=== PATIENT | female | born 1960 | race Caucasian/White ===

== ENCOUNTER → 2019-06-06 | Outpatient (CLI) | payer BC, SELFPAY ==
--- NOTE | 2019-06-06 | IMM_PTH ---
PATIENT: ADAM LOWRY LOC: [facility] U#:[id number] AGE/SX: 58/F ROOM: RE06/06/[address]: Dr. Vilma Ramírez MD : 1960 BED: DIS: 06/06/2019 SPEC #: [id number] RECD: 06/10/19 12:48 STATUS: GIGI REQ #: [id number] LEAH: 06/06/19 00:[address]: Vilma Villarreal DEPT: IMMUNOHISTOCHEMISTRY RECD BY: Nhi Cleaning ENTERED: 06/10/19 12:51 SP TYPE: IMMUNO OTHR DR: No Primary Care Phys Tissues: A - Uterine cervix, NOS Procedures: p16 (initial) KI-67 (add) PHYSICIAN & INSTITUTION [place] [id number] SPECIMEN INFORMATION: Tissue Source: A - Cervical biopsy at 3 o'clock Clinical Info: Menopausal, ASCUS, positive HPV Specimen Number: [id number] CPT code: 37743, 02350 METHODOLOGY: Deparaffinized sections of prefer/formalin-fixed tissue or PAP/DQ stained slides are incubated with monoclonal/polyclonal antibodies/oligonucleotide probes. Localization is made via biotin free immunoperoxidase method. Appropriate controls are performed and reacted as expected. Results on target cell population are indicated in the following table: RESULTS: ANTIBODY / CLONE RESULT Block A P16 (E6H4) positive, block staining Ki-67 (30-9) positive, moderate These tests were developed and their performance characteristics determined by [facility]. They may not have been cleared or approved by the U.S. Food and Drug Administration. The FDA has determined that such clearance or approval is not necessary. The above immunohistochemical/dualISH markers are ordered and reviewed by the Pathologist. INTERPRETATION: A. Cervix at 3 o'clock, biopsy: Focal moderate squamous dysplasia. YONG:markus 06/10/19
--- NOTE | 2019-06-06 15:00 | CER_PTH ---
PATIENT: ADAM LOWRY LOC: [facility] U#:[id number] AGE/SX: 58/F ROOM: RE06/06/[address]: Dr. Vilma Ramírez MD : 1960 BED: DIS: 06/06/2019 SPEC #: [id number] RECD: 06/06/19 15:58 STATUS: GIGI RERoman #: [id number] LEAH: 06/06/19 15:[address]: Vilma Villarreal DEPT: SURGICAL PATHOLOGY RECD BY: Darrel Moreno ENTERED: 06/07/19 11:58 SP TYPE: CERV OTHR DR: Nette Primary Care Phys Tissues: A - Uterine cervix, NOS B - Uterine cervix, NOS Procedures: Surgery Specimen Level IV HEADER OPERATION: Colposcopy PRE-OP DIAGNOSIS: Menopausal, ASCUS, positive HPV TISSUE SUBMITTED: A - Cervical biopsy at 3 o'clock, B - ECC MICROSCOPIC DIAGNOSIS A. Cervix, 3 o'clock, biopsy: Focal Moderate squamous dysplasia (HGSIL, KATRINA II). Chronic inflammation and squamous metaplasia. See comment. B. ECC: A fragment of benign endocervical mucosa predominantly consisting of stromal tissue and mucous, negative for dysplasia. YONG:markus 06/10/19 COMMENT A. Immunohistochemistry ([id number]) for surrogate HPV marker (p16) supports the above diagnosis. This case has been reviewed in consultation with Dr. Jones who concurs with the above diagnosis. MICROSCOPIC DESCRIPTION Slides are reviewed. GROSS DESCRIPTION A - Received in fixative is one container labeled with the patient's name and designated cervical. The specimen consists of multiple irregular fragments of light david soft tissue that in aggregate measure 0.2 x 0.1 x <0.1 cm. The specimen is totally submitted in one cassette. B - Received in fixative is one container labeled with the patient's name and designated ECC. The specimen consists of multiple minute fragments of david tissue that in aggregate measure 1 x 1 x <0.1 cm. The specimen is totally submitted in one cassette. / AM:markus 06/07/19 TC:5 CPT: 59131 x2
== END | disposition home or self-care (01) ==
LOC: LABSPEC 16:00
PROVIDERS: Referring Provider Obstetrics & Gynecology; Visit Provider Obstetrics & Gynecology
DX: R87.610 Atypical squamous cells of undetermined significance on cytologic smear of cervix (ASC-US) (principal); Z78.0 Asymptomatic menopausal state
CPT/HCPCS: 88305; 88341; 88342

== ENCOUNTER 2019-08-16 09:40 | Day surgery (SDC) | payer BC, SELFPAY ==
--- NOTE | 2019-08-15 15:38 | PCM.HPOB.BLA ---
- Problem List (1) Cervical dysplasia, moderate Status: Acute History and Physical Date of Admission: 08/16/19 Date: 08/15/2019 Name: LIDA GÓMEZ Age: 58 Date of : 1960 Surgical History and Physical Date: 08/15/2019 Name: LIDA GÓMEZ Age: 58 Date of : 1960 Lida Gómze, a 58 year old female 2 0 0 0 2, presents for LEEP on August 08, 2019 at 2:30. -- iLda was referred for ASCUS, positive HRHPV PAP. Cervical biopsy showed CIN2. MEDICATIONS HISTORY: Patient is also takin. alprazolam 0.25 mg tablet, prn 2. Cymbalta 60 mg capsule,delayed release, daily 3. gemfibrozil 600 mg tablet, daily 4. hydroxyzine pamoate 25 mg capsule, prn 5. meloxicam 15 mg tablet, prn 6. metoprolol tartrate 50 mg tablet, daily 7. Vitamin D3 2,000 unit tablet, daily 8. zolpidem 10 mg tablet, prn ALLERGIES: Sulfa, Wheezing, hives, Sulfa (Sulfonamide Antibiotics) and Wheezing Infections - Chicken pox Illnesses - HTN,Arthritis, Fibromyalgia, cardiac arrhythmia Hospitalizations - Childbirth and see surgery Review of Systems: GENERAL - Denies fever, or chills SKIN - Denies skin changes EYES - wears eye glasses EARS - Denies difficulty hearing NOSE - Denies nasal congestion or bleeding MOUTH - Denies sore throat or difficulty swallowing NECK - Denies pain or swelling RESPIRATORY - Denies shortness of breath or wheezing CARDIOVASCULAR - Denies palpitations or chest pain GASTROINTESTINAL - Denies nausea, vomiting, diarrhea, constipation GENITOURINARY - Denies dysuria, frequency of urination, incontinence of urine MUSCULOSKELETAL - Denies joint or muscle pain NEUROLOGICAL - Denies localized numbness or weakness PSYCHIATRIC - Denies depression or anxiety ENDOCRINE - Denies heat or cold intolerance, weight loss or gain HEMATO-IMMUNOLOGIC - Denies excesive bleeding with cuts SOCIAL HISTORY: Alcohol Use - RARELY Smoking - used to smoke but quit Diet - no special diet Lifestyle - Seat Belt Use - always 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 MENSTRUAL HISTORY: LMP Known?- Postmenopausal, LMP - 01/01/11 PAST PREGNANCIES: Total Pregnancies - 2; Full Term Pregnancies - 2; Premature - 0; Abortions, Induced - 0; Abortions, Spontaneous - 0; Ectopics - 0; Multiple Births - 0; Living Children - 2 SURGICAL HISTORY: 1. Ear tube, 2018 ; - 2. Cardiac ablation, 10/30 ; - 3. Hernia repair, 01/01 ; - PHYSICAL EXAM BP- 100/70 Sitting, Right arm, regular cuff Weight- 201.13964 lbs Height- 65 inch BMI:33.52 CONSTITUTIONAL - NAD, well nourished, and well developed SKIN - No rash, lesions, or ulcers HEENT - normocephalic, atraumatic, sclerae anicteric LUNGS - normal respiratory rate and rhythm NEUROLOGICAL - normal gait, normal balance, normal motor PSYCHIATRIC - A and O to time, place, person, mood and affect External Genitial Vagina - non-tender without lesions Urethra/Urethral Meatus - non-tender Bladder - cystocele Vagina - vaginal rothman are pink and moist without loss of rugae and no evidence of atropy Cervix - without cervical motion tenderness and has normal size and features without evident lesions Uterus - 5-6 cm in size, mobile and nontender Adnexa - clear without massess or tenderness ASSESSMENT/PLAN: 1. Cervical High Risk Human Papillomavirus (hpv) DNA Test Positive Reviewed HPV transmission, risk for cervical ca Colposcopy - CIN2 Plan for LEEP Consents on day of surgery. Essential Procedure Criteria Procedure Essential: Yes Criteria Note: precancerous lesion present - excision required to prevent progression to cancer and rule out occult malignant Risk to Patient if Procedure Delayed: Risk of metastasis or progression of staging
[2019-08-16] VITALS (7 sets, daily range): BP systolic 130–163; BP diastolic 78–87; PULSE 60–66; RESP 15–16; TEMP 36.3–37.1; O2SAT 96–100; BMI 33.3
--- NOTE | 2019-08-16 | IMM_PTH ---
PATIENT: ADAM LOWRY LOC: [facility] U#:[id number] AGE/SX: 58/F ROOM: RE08/16/[address]: Dr. Vilma Ramírez MD : 1960 BED: DIS: 08/16/2019 SPEC #: [id number] RECD: 08/20/19 11:14 STATUS: GIGI REQ #: [id number] ELAH: 08/16/19 00:[address]: Vilma Villarreal DEPT: IMMUNOHISTOCHEMISTRY RECD BY: Nhi Cleaning ENTERED: 08/20/19 11:15 SP TYPE: IMMUNO OT DR: Indy Rutledge, INSPECTOR CHIEF-C Tissues: B - Uterine cervix, NOS Procedures: KI-67 (add) P16 (add) KI-67 (initial) PHYSICIAN & INSTITUTION [place] [id number] SPECIMEN INFORMATION: Tissue Source: B - Ectocervix open at 3 o'clock Clinical Info: Cervical high risk HPV DNA test positive Specimen Number: [id number] B2 & B3 CPT code: 81421, 43358 x3 METHODOLOGY: Deparaffinized sections of prefer/formalin-fixed tissue or PAP/DQ stained slides are incubated with monoclonal/polyclonal antibodies/oligonucleotide probes. Localization is made via biotin free immunoperoxidase method. Appropriate controls are performed and reacted as expected. Results on target cell population are indicated in the following table: RESULTS: ANTIBODY / CLONE RESULT Block B2 P16 (E6H4) positive, block staining Ki-67 (30-9) positive, moderate Block B3 P16 (E6H4) positive, block staining Ki-67 (30-9) positive, moderate These tests were developed and their performance characteristics determined by [facility]. They may not have been cleared or approved by the U.S. Food and Drug Administration. The FDA has determined that such clearance or approval is not necessary. The above immunohistochemical/dualISH markers are ordered and reviewed by the Pathologist. INTERPRETATION: Ectocervix, LEEP conization: Focal moderate to severe squamous dysplasia. SJ:markus 08/21/19
[2019-08-16 10:20] LABS: Hematocrit 42.7 % (37-47); Hemoglobin 13.3 g/dL (12.0-15.0); Mean Corp Hgb Conc 31.1 g/dL (32-36); Mean Corpuscular Hgb 25.8 pg (27.0-32.0); Mean Corpuscular Volume 82.9 fL (81-99); Platelet Count 375 K/mm3 (150-450); RBC Distribution Width CV 13.6 % (11.6-14.6); RBC Distribution Width SD 41.1 fl (35.1-43.9); Red Blood Count 5.15 M/mm3 (4.2-5.4); White Blood Count 7.8 K/mm3 (4.4-11.0)
[2019-08-16 10:29] LABS: Prothrombin Time (Protime)PT. 12.9 SECONDS (11.7-14.9)
[2019-08-16 10:30] LABS: Partial Thromboplast Time 26.4 Seconds (24.1-36.2)
[2019-08-16] MEDS: Lactated Ringers 1,000 ML 125 ML IV (10:33)
--- NOTE | 2019-08-16 11:30 | ECC_PTH ---
PATIENT: ADAM LOWRY [place] [facility] [place][id number] AGE/SX: 58/F ROOM: RE08/16/[address]: Dr. Vilma Ramírez MD : 1960 BED: DIS: 08/16/2019 SPEC #: [id number] RECD: 08/16/19 14:16 STATUS: GIGI MARY #: [id number] LEAH: 08/16/19 11:[address]: Vilma Villarreal DEPT: SURGICAL PATHOLOGY RECD BY: Amador Olivas ENTERED: 08/19/19 11:25 SP TYPE: ECC CATHY DR: Indy Rutledge, JOHN-C Tissues: A - Endocervical B - Uterine cervix, NOS Procedures: Surgery Specimen Level IV Surgery Specimen Level V HEADER OPERATION: LEEP cone PRE-OP DIAGNOSIS: Cervical high risk HPV DNA test positive TISSUE SUBMITTED: A - ECC, B - Ectocervix open at 3 o'clock MICROSCOPIC DIAGNOSIS A. ECC: Fragments of benign endocervical epithelium, blood and mucous, negative for dysplasia. B. Ectocervix, LEEP conization: Focal moderate to severe squamous dysplasia with HPV changes (HGSIL and KATRINA II-III). Dysplastic changes also involve endocervical glands. Chronic inflammation and squamous metaplasia. Focal moderate squamous dysplastic changes are noted at the ectocervical resection margin. See comment. SJ:markus 08/20/19 COMMENT B. Immunohistochemistry ([id number]) for surrogate HPV marker (p16) supports the above diagnosis. Please make reference to previous specimen ([id number]) cervix, 3 o'clock, biopsy with diagnosis of focal moderate squamous dysplasia. Case has been reviewed in consultation with Dr. Jones who concurs with the above diagnosis. IDC:AM MICROSCOPIC DESCRIPTION Slides are reviewed. GROSS DESCRIPTION A - Received in fixative is one container labeled with the patient's name and designated ECC. The specimen consists of multiple irregular fragments of david-brownish mucoid tissue that in aggregate measure 2 x 0.5 x 0.2 cm. The entire specimen is submitted in one cassette. B - Received in fixative is one container labeled with the patient's name and designated ectocervix open at 3 o'clock. The specimen consists of a david, indurated piece of tissue consisting of LEEP conization measuring 2.5 x 2.5 cm and up to 1 cm in length. No mucosal lesion is identified. The specimen is identified open at 3 o'clock. Nonmucosal margin is inked black. Endocervical margin is inked blue. The specimen is radially sectioned and submitted entirely in four cassettes as follows: 1 - 12 to 3 o'clock, 2??3 to 6 o'clock, 3 - 6 to 9 o'clock, 4 - 9 to 12 o'clock. / SJ:markus 08/19/19 TC:5 CPT: 38779, 25932
--- NOTE | 2019-08-16 12:25 | PCM.PN.BLA ---
Progress Note Reviewed with patient procedural indications. Risks including but not limited pain, bleeding, possibly requiring hysterectomy, infection, allergic reaction, scarring discussed. Patient and given opportunity to ask questions and questions answered to their satisfaction. Reviewed risk for Sars COV2 exposure associated with exceptions to social distancing including procedure. We reviewed risk for undiagnosed advanced lesion or progression of lesion to cancer associated with continued delay of procedure. Patient reports she is aware and desires to proceed. STROKE Vital Signs/Narrative: Vital Signs Temp Pulse Resp BP Pulse Ox 08/16/19 10:22 98.7 F 64 15 163/78 H 99 Essential Procedure Criteria Procedure Essential: Yes Criteria Note: Cervical precancer in situ - excisional procedure indicated to prevent progression to cervical cancer and rule out coexisting lesion Risk to Patient if Procedure Delayed: Risk of metastasis or progression of staging
--- NOTE | 2019-08-16 13:07 | PCM.OPRPT ---
Problem List (1) Cervical dysplasia, moderate Status: Acute Report of Operation Date of Procedure: 08/16/19 Pre-Operative Diagnosis: High grade cervical dysplasia Surgery/Procedure Performed:: High grade cervical dysplasia Type of Anesthesia:: MAC Anesthesiologist: Ozzie Gonzales Specimen's removed: 1. ectocervix - open at 3 o'clock, 2. endocervical curettings Estimated Blood Loss (mL): 15 ml Fluids Replaced: 800 ml Description of Procedure: Patient was brought to the operating room and sign in performed. She was induced under MAC. She was repositioned into dorsal lithotomy. The perineum was prepped and draped in sterile fashion. An insulated speculum was placed into the vagina and cervix visualized. Lugol's solution applied to the cervix with circumferential non-uptake at the transformation zone. 20cc of dilute Vasopression (20cc in 200cc NS) was injected paracervically. A 2cm x 1 cm loop electrode was used to excise the ectocervix. Endocervical curettage was performed. The LEEP excisional bed was fulgarated and electrocoagulated using the ball electrode with good hemostasis. Monsel's solution was applied at the surgical site for additional hemostasis. The procedure was complete. The patient was repositioned into dorsal supine, awakened and transferred to the recovery room without complication. Sponge counts were correct x 2. Patient tolerated the procedure well. - Admit VTE Documentation VTE Present on Admission: No VTE Mechan Device Prophylaxis: SCD's VTE Pharm Prophylaxis ordered?: No
--- NOTE | 2019-08-16 13:17 | DCINST_ITS ---
Discharge Diet: No Restrictions Discharge Activity: Return to Normal Activity, May not drive while taking narcotic pain medications., May Shower, - - No tub bath for 2 weeks, nothing in the vagina, no driving for 24-48 hours May resume sexual activity in: 4 weeks Call your doctor if you observe: Fever of 101 or Higher, Inability to urinate, Using more than one pad per hour, Shortness of breath, Chest pain, Calf discomfort, Uncontrolled pain Allergies/Adverse Reactions: Allergies Sulfa (Sulfonamide Antibiotics) Allergy (Verified 08/16/19 10:20) Swelling Medications to take at Discharge Amitriptyline HCl [Elavil] 25 mg PO QHS PRN 08/14/19 Amlodipine Besylate [Norvasc] 5 mg PO QHS 08/14/19 Buspirone HCl 10 mg PO TID PRN 08/14/19 Clostrium 1 cap PO DAILY 08/14/19 Duloxetine Hcl [Cymbalta] 60 mg PO DAILY 08/14/19 Ergocalciferol [Vitamin D] 50,000 unit PO Q7D 08/14/19 Gemfibrozil [Lopid] 600 mg PO QHS 08/14/19 Iron,Carbonyl [Carbonyl Iron] 65 mg PO DAILY 08/14/19 Metoprolol Tartrate [Lopressor (beta sidra)] 50 mg PO QHS 08/14/19 Ibuprofen 600 mg PO TID PRN #30 tab 08/16/19 Oxycodone [Oxyir] 5 mg PO Q6H PRN PRN 7 Days #4 tab 08/16/19 The following prescriptions were given: Ibuprofen 600 mg PO TID PRN #30 tab PRN Reason: pain Transmission Status: Pending to [facility] Oxycodone [Oxyir] 5 mg PO Q6H PRN PRN 7 Days #4 tab PRN Reason: severe pain Prescription Printed Primary Care Physician: Indy Rutledge NP-C [Primary Care Provider] - Test Results: Test results from this visit will be discussed in further detail at your follow- up appointment, if applicable. Please Follow Up With: Vilma Power MD When: 2-4 weeks
== END 2019-08-16 14:03 | disposition home or self-care (01) ==
LOC: SDC 09:45 → AC 09:47
PROVIDERS: PCP Nurse Practitioner Family; Referring Provider Obstetrics & Gynecology; Visit Provider Obstetrics & Gynecology
PROC: 0UBC7ZZ Excision of Cervix, Via Natural or Artificial Opening (ICD-10-PCS; CPT 57522; principal; 2019-08-16 11:15)
DX: R87.613 High grade squamous intraepithelial lesion on cytologic smear of cervix (HGSIL) (principal); D64.9 Anemia, unspecified; I10 Essential (primary) hypertension; E78.00 Pure hypercholesterolemia, unspecified; M79.7 Fibromyalgia; F41.9 Anxiety disorder, unspecified; Z79.1 Long term (current) use of non-steroidal anti-inflammatories (NSAID); Z79.899 Other long term (current) drug therapy; Z88.2 Allergy status to sulfonamides; Z87.891 Personal history of nicotine dependence
CPT/HCPCS: 57522; 36415; 85027; 85610; 85730; 86850; 86900; 86901; 88305; 88307; 88341; 88342; J7120

== ENCOUNTER → 2020-01-28 | Outpatient (CLI) | payer BC, SELFPAY ==
[2019-09-30 09:21] VITALS: BMI 33.3
[2020-02-01 14:11] LABS: HPV APTIMA, High Risk Negative (Negative)
== END | disposition home or self-care (01) ==
LOC: LABSPEC 15:03
PROVIDERS: PCP Nurse Practitioner Family; Visit Provider Obstetrics & Gynecology
DX: N87.1 Moderate cervical dysplasia (principal)
CPT/HCPCS: 87624; 88175; G0145

== ENCOUNTER → 2020-02-28 09:55 | Outpatient (CLI) | payer BC, SELFPAY ==
[2019-09-30 09:21] VITALS: BMI 33.3
--- NOTE | 2020-02-28 09:40 | ECC_PTH ---
PATIENT: ADAM LOWRY LOC: [facility] U#:[id number] AGE/SX: 64/F ROOM: RE02/28/[address]: Dr. Vilma Ramírez MD : 1960 BED: DIS: SPEC #: [id number] RECD: 02/28/20 11:09 STATUS: GIGI MARY #: [id number] LEAH: 02/28/20 09:[address]: Vilma Villarreal DEPT: SURGICAL PATHOLOGY RECD BY: Amador Olivas ENTERED: 02/28/20 11:09 SP TYPE: ECC CAROLYNHR DR: Indy Rutledge, DITCHING MACHINE OPERATING ENGINEER-C Tissues: Endocervical Procedures: Surgery Specimen Level IV HEADER OPERATION: ECC PRE-OP DIAGNOSIS: ASCUS, positive HR-HPV TISSUE SUBMITTED: Endocervix MICROSCOPIC DIAGNOSIS ECC: Fragments of benign ectocervical epithelium and amorphous calcified material, negative for dysplasia. See comment. YONG:markus 03/02/20 COMMENT Clinical correlation and appropriate follow up are necessary. Please make reference to previous specimens ([id number]) cervix, 3 o'clock with diagnosis of focal moderate squamous dysplasia and ([id number]) ectocervix, LEEP conization with diagnosis of focal moderate to severe squamous dysplasia and also focal moderate squamous dysplastic changes noted at the ectocervical resection margin. MICROSCOPIC DESCRIPTION Slides are reviewed. GROSS DESCRIPTION Received in fixative is one container labeled with the patient's name and designated ECC. The specimen consists of a scant amount of soft tissue. The specimen is totally submitted for cell block preparation. / SJ:markus 02/28/20 TC:5 CPT: 78038
== END ==
PROVIDERS: PCP Nurse Practitioner Family; Visit Provider Obstetrics & Gynecology
DX: N88.2 Stricture and stenosis of cervix uteri (principal); N87.1 Moderate cervical dysplasia
CPT/HCPCS: 88305

== ENCOUNTER 2021-05-14 16:31 | Outpatient (CLI) | payer BC, SELFPAY ==
[2021-05-19 17:03] LABS: HPV APTIMA, High Risk Negative (Negative)
== END 2021-05-14 23:59 | disposition short-term general hospital (02) ==
LOC: LABSPEC 16:32
PROVIDERS: Visit Provider Obstetrics & Gynecology
DX: Z12.4 Encounter for screening for malignant neoplasm of cervix (principal)
CPT/HCPCS: 87624; 88175; G0145

== ENCOUNTER → 2022-04-04 | Outpatient (CLI) | payer OTHER, SELFPAY ==
--- NOTE | 2022-04-04 | BRBX_PTH ---
PATIENT: ADAM LOWRY LOC: [facility] U#:[id number] AGE/SX: 61/F ROOM: RE04/04/[address]: Dr. Thiago Blankenship MD : 1960 BED: DIS: 04/04/2022 SPEC #: [id number] RECD: 04/04/22 12:00 STATUS: GIGI MARY #: [id number] LEAH: 04/04/22 00:[address]: Thiago Blankenship DEPT: SURGICAL PATHOLOGY RECD BY: Mason Lacy ENTERED: 04/04/22 12:01 SP TYPE: BREAST BX OTHR DR: Indy Polanco, TECH INTERN-C Tissues: Left breast, NOS Procedures: Surgery Specimen Level IV HEADER OPERATION: Left breast stereotactic needle core biopsy PRE-OP DIAGNOSIS: Spiculated density UOQ TISSUE SUBMITTED: Left breast ISCHEMIC TIME: 1 minute FIXATION TIME: 8 hours MICROSCOPIC DIAGNOSIS Left breast, density upper outer quadrant, stereotactic needle core biopsy: Extensive intraductal hyperplasia with focal areas of florid intraductal hyperplasia without atypia. Fibrocystic changes and extensive adenosis. Negative for malignancy. See comment. YONG:markus 04/05/2022 COMMENT Correlation with clinical, radiologic findings and appropriate follow up are necessary. Case has been reviewed in consultation with Dr. Jones who concurs with the above diagnosis. IDC:AM MICROSCOPIC DESCRIPTION Slides are reviewed. GROSS DESCRIPTION Received in fixative is one container labeled with the patient's name and designated left breast. The specimen consists of multiple elongated fragments of david-yellow fibroadipose tissue that in aggregate measure 5 x 3 x 0.6 cm. The entire specimen is submitted in four cassettes. / YONG:[email or web address] 04/04/2022 TC:5 CPT: 19804
--- NOTE | 2022-04-04 11:06 | PCM.HP.BLA ---
History and Physical Date of Admission: 04/04/22 Visit Reasons:?LEFT BIRADS 4 Allergies Sulfa (Sulfonamide Antibiotics) Allergy (Verified 04/01/22 12:27) Swelling PFSH Medical History?(Updated 04/01/22 @ 12:24 by Irene Bynum) Anxiety Hiatal hernia HTN (hypertension) Surgical History?(Updated 04/01/22 @ 12:25 by Irene Bynum) H/O cardiac radiofrequency ablation History of repair of hiatal hernia Family History?(Updated 04/01/22 @ 12:25 by Irene Bynum) Father Colon cancerMother Hypertension Hyperlipidemia Social History?(Updated 04/01/22 @ 12:26 by Irene Bynum) Smoking Status:? Former smoker alcohol intake:? never substance use type:? does not use HPI HPI HPI: 61-year-old female is being referred by Dr. Indy Polanco for surgical consultation regarding an abnormal mammogram and a written copy of my surgical consult and recommendations will return to her.? At [facility] the patient had routine screening mammography on March 14, 2022.? There was felt to be asymmetry in the left breast central mid breast only seen on the oblique view 1 o'clock position and was felt to measure 14 x 19 x 18 mm.? Diagnostic left breast mammogram was obtained suggesting a 11 x 12 x 13 mm stellate lesion at 1 o'clock position left breast.? A left breast ultrasound was obtained suggesting likely benign cyst versus solid lesion hypoechoic left breast 1 o'clock position 3 x 3 x 3 mm and another similar lesion 3 x 3 x 4 mm and several smaller lesions at the 3 o'clock position.? It was felt that these findings did not correlate with the mammographic findings. T 11-year-old female.? G2, .? Menarche at age 18.? First child born when she was 21.? She did not breast-feed.? No history of previous breast biopsies.? She has not been on estrogen medication.? Family history notable for maternal grandmother had breast cancer. Medical issues include hypertension and hypercholesterolemia and panic attacks. She denies any breast pain.? No nipple discharge or bleeding. ROS General General: No weight change, appetite, fatigue, colon cancer, breast cancer or weakness HEENT HEENT: No difficulty swallowing, eye injury, eye surgery, swollen glands or hoarseness Endo Endocrine: No thyroid disease, diabetes mellitus, thyroid cancer, Hair loss, heat intolerance or cold intolerance Skin Skin: No rash or changing moles Breast Breast: Yes abnormal mammogram; No left breast lump, right breast lump, nipple discharge, breast pain, abnormal US or breast enlargement Musc Musculoskeletal: Yes arthritis; No back problems, rheumatoid arthritis, gout or joint pain Cardio Cardiovascular: Yes high blood pressure; No murmur, pacemaker, heart disease, atrial fibrillation, heart attack, heart stent, palpitations, shortness of breat with exertion or chest pain Psych Psychiatric: Yes anxiety; No depression or hearing voices Resp Respiratory: No shortness of breath, No sleep apnea, No cough, No COPD, No asthma, No emphysema and No wheezing Gastro Gastrointestinal: No abdominal pain, No nausea or vomiting, No diarrhea, No constipation, No blood in stool, No acid reflux, No hemorrhoids, No ulcers, No gallbladder problem and No black,tarry stools Kristofer Hematologic: No blood thinners, No blood disorders, No bleeding, No anemia and No blood clots Neuro Neurologic: No system reviewed and no additional complaints, except as documented, No as per HPI, No abnormal gait, No abnormal hearing, No abnormal movements, No abnormal speech, No behavioral changes, No burning sensations, No confusion, No convulsions, No disequilibrium, No dizziness, No localized weakness, No frequent falls, No headache(s), No lack of coordination, No loss of vision, No memory loss, No numbness, No other visual disturbances, No radicular pain, No restless legs, No sensory deficit, No syncope, No tingling, No tremor(s), No weakness and No other Exam Const General: cooperative, comfortable and no acute distress Nutritional Appearance: obese [facility] Head: normal to inspection Eyes General: appearance normal, both eyes and all related structures Neck Neck: normal visual inspection Chest Other: Right breast: No focal mass, no nipple discharge, no axillary clavicular neuropathy, fibrofatty axilla, no focal mass Left wrist: Mild diffuse fibrous change upper outer quadrant left breast.? No focal mass.? No axillary clavicular adenopathy.? No nipple discharge or bleeding Resp Effort & Inspection: normal respiratory effort Auscultation: clear to auscultation bilaterally Cardio Rate: regular rate Rhythm: regular rhythm GI Inspection: normal to inspection Palpation: soft and no hepatosplenomegaly Musc Cervical Spine: normal cervical lordosis Skin General: no rashes or lesions noted Neuro General: patient alert, patient awake and patient oriented x3 Extrem General: no calf tenderness Psych Appearance: grossly normal Assessment and Plan Assessment and Plan (1) Abnormal mammogram of left breast: ?Status:?Acute ?Plan: I recommended the patient attempt at a stereotactic needle core upper outer quadrant left breast biopsy.? The area in question is indeed quite vague.? I discussed the technique, benefit, risk, alternatives.? She has had an opportunity to ask and have questions answered.? We will schedule Care.? I very much appreciate the kind opportunity of assisting with her surgical management.? At this point I am hoping anticipating that the less invasive stereotactic biopsy will be diagnostic in deference to to the radiologist referred wire localization lumpectomy.? If the patient requires more definitive surgery I would like to hold the wire localized procedure till the setting that we would be doing a sentinel node biopsy. Copy: Dr. Indy Blankenship M.D., F.A.C.S. (2) Anxiety: ?Status:?Acute (3) HTN (hypertension): ?Status:?Chronic (4) Cervical dysplasia, moderate: ?Status:?Acute ? ? ? Orders: Orders Stereo Breast Biopsy [facility]st [facility] 04/04/22 R92.8 - Other abnormal and inconclusive findings on diagnostic imaging of breast I have examined the patient and the H&P has been reviewed. There are no clinical changes since date of exam. Thiago Blankenship M.D., F.A.C.S.
--- NOTE | 2022-04-04 11:44 | PCM.OPRPT ---
Report of Operation Date of Procedure: 04/04/22 Pre-Operative Diagnosis: Abnormal left mammogram with extraordinarily vague area of suspected spiculation upper outer quadrant Post-Operative Diagnosis: Same Surgery/Procedure Performed:: Stereotactic needle core biopsy upper outer left breast Description of Surgical Findings:: Timeout informed consent was obtained. 61-year-old female was taken to the stereotactic unit placed prone on the table the left wrist was placed in the cc view the generalized area in question which had been vaguely identified on preoperative films was identified. Dramatic spiculation was not identified. The general territory was. Stereotactic images were obtained. Target on scalp selected replacing image 1. The breast was prepped with Betadine. 1% lidocaine mixed 50-50 with 0.5% Marcaine was used as a local anesthetic. Throughout the procedure a total of 10 cc was used. Small stab incision was created. The resolved needle was advanced to depth. Prefire films were obtained demonstrating apparently good localization. 12 cores were taken completely around the clock face. Marking clip was left in position. She was released from the device pressure was held for hemostasis. The specimens were immediately transferred to formalin for analysis. She tolerated procedure very well there was minimal blood loss no apparent complication. Specimen scores. Drains none. Blood loss minimal The patient was given activity wound care instructions. She will be contacted with pathology results at the soonest convenience. Thiago Blankenship M.D., F.A.C.S. Surgeon: Thiago Blankenship Type of Anesthesia: Local
== END | disposition home or self-care (01) ==
LOC: BIRAD 10:59
PROVIDERS: PCP Nurse Practitioner Family; Visit Provider Surgery
DX: N60.22 Fibroadenosis of left breast (principal); I10 Essential (primary) hypertension; E78.00 Pure hypercholesterolemia, unspecified; F41.9 Anxiety disorder, unspecified; Z79.1 Long term (current) use of non-steroidal anti-inflammatories (NSAID); Z79.899 Other long term (current) drug therapy; Z87.891 Personal history of nicotine dependence
CPT/HCPCS: 19081; 88305; J7050

== ENCOUNTER → 2022-07-07 | Outpatient (CLI) | payer BC, SELFPAY ==
--- NOTE | 2022-07-07 09:10 | RAD_ITS ---
EXAM: FL Esophagram, Single Contrast HISTORY: DYSPHAGIA COMPARISON: None FINDINGS: This was an incomplete study, patient was unable to tolerate either the crystals, or ingest a significant enough quantity of barium to make this study diagnostic. Rather evaluation with modified barium swallow or endoscopy RAD/Esophagus Single Contrast IMPRESSION: Incomplete limited study, no suspicious abnormalities noted, however, study is nondiagnostic Electronically Signed: Jeremiah Ash MD at 10:30 EDT ,
== END | disposition home or self-care (01) ==
PROVIDERS: PCP Nurse Practitioner Family; Visit Provider Internal Medicine Gastroenterology
DX: R13.10 Dysphagia, unspecified (principal)
CPT/HCPCS: 74220; 74221

== ENCOUNTER → 2022-07-14 | Outpatient (CLI) | payer BC, SELFPAY ==
--- NOTE | 2022-07-14 09:25 | ECHOCS_ITS ---
Reason For Study: Chest Pain Procedure This was a 2D Doppler, Color Flow transthoracic echocardiogram. The study was technically difficult. Contrast injection was performed. Exam performed in department. Left Ventricle Normal size and thickness. The left ventricular ejection fraction is 60 %. Normal diastology for age. Right Ventricle Normal right ventricle. Atria The left and right atria are normal. Mitral Valve Trivial mitral valve insufficiency. Tricuspid Valve Trivial tricuspid valve insufficiency. Unable to estimate RV systolic pressure due to insufficient tricuspid regurgitant envelope. Aortic Valve Normal aortic valve. Pulmonic Valve The pulmonic valve is not well visualized. Great Vessels Normal sized aortic root. Pericardium/Pleural Prominent fat pad vs small organized effusion. Recommend CT chest for further evalaution,. Medication 22 gauge I.V. with prn adaptor inserted into right arm. Diluted definity 2ml given slow IV push to enhance endocardial definition. MMode/2D Measurements & Calculations LVIDd: 4.3 cm IVSd: 1.1 cm Ao root diam: 3.0 cm LVIDs: 3.0 cm LVPWd: 1.1 cm LA dimension: 3.6 cm RVDd: 2.4 cm FS: 29.7 % LAV(MOD-bp): 42.4 ml LA A4 area: 16.8 cm2 RA A4 area: 9.9 cm2 LAV(MOD-bp) Indexed: 21.4 ml/m2 LAV(MOD-sp2): 44.0 ml LAV(MOD-sp4): 40.3 ml Time Measurements MV dec time: 0.26 sec Doppler Measurements & Calculations MV E max cuba: 81.1 cm/sec Lat Peak E' [place]: 8.6 cm/sec Med Peak E' [place]: 7.4 cm/sec MV A max cuba: 108.5 cm/sec E/E' lat: 9.4 E/E' med: 11.0 MV E/A: 0.75 MV V2 max: 116.3 cm/sec MV dec slope: 321.1 cm/sec2 Ao V2 max: 127.2 cm/sec MV max P.4 mmHg Ao max P.5 mmHg MV V2 mean: 59.7 cm/sec MV mean P.7 mmHg MV V2 VTI: 28.4 cm LV V1 max: 120.5 cm/sec PA V2 max: 111.6 cm/sec TR max cuba: 139.0 cm/sec LV V1 max P.8 mmHg PA V2 mean: 68.9 cm/sec TR max P.7 mmHg ECHO/Echo Complete W/ Contrast Interpretation Summary The left ventricular ejection fraction is 60 %. Prominent fat pad vs small organized pericardial effusion. Recommend CT chest f or further evalaution, Ordering Physician: Indy Polanco Performed By: Guanakito Kimbrough RCS
--- NOTE | 2022-07-14 09:52 | STRESSREP ---
Stress Test Report Date: 07/14/2022 Procedure: Pharmacologic stress nuclear imaging study Indications: Chest pain Consent: Per the patient Procedure: The patient underwent pharmacologic (Regadenoson 0.4mg ) evaluation with a peak heart rate of 148 beats per minute (91%predicted maximal heart rate) and a peak blood pressure of 158/100 mmHg. The baseline ECG demonstrated normal sinus rhythm. The peak pharmacologic ECG demonstrated no ischemic change. There were no cardiac dysrhythmias pretest, during pharmacologic infusion, or recovery. There was no complaint of chest discomfort during pharmacologic infusion or recovery. The patient was injected with 14.9 millicuries of technetium 99m Cardiolite and subsequently rest SPECT Cardiolite nuclear imaging was obtained in the horizontal long, vertical long, and short axis views. The patient underwent pharmacologic (Regadenoson) evaluation. The patient was injected with 44.5 millicuries of technetium 99m Cardiolite and subsequently stress SPECT Cardiolite nuclear imaging was obtained in the horizontal long, vertical long, and short axis views. A gated Cardiolite study at peak stress was obtained. The examination was stopped secondary to completion of protocol. Rest and stress SPECT Cardiolite nuclear imaging status post realignment, normalization, and attenuation correction demonstrate no fixed or reversible perfusion defect. There is end systolic thickening and brightening. The gated Cardiolite study demonstrates myocardial thickening and inward wall motion. The reported LVEF is 76%. Impression: 1. Pharmacologic (Regadenoson) evaluation 2. Peak pharmacologic ECG with. 3. There were no cardiac dysrhythmias pretest, during pharmacologic infusion, or recovery. 5. No fixed or reversible perfusion defects noted. 6. The gated Cardiolite study reports an LVEF of 76%. This note was generated with SimpleRelevanceation software. It may contain incorrect words, spelling, and punctuation that were not noted in checking the note before signing.
== END | disposition home or self-care (01) ==
PROVIDERS: PCP Nurse Practitioner Family; Visit Provider Nurse Practitioner Family
DX: R06.02 Shortness of breath (principal); R07.9 Chest pain, unspecified; E66.9 Obesity, unspecified; I10 Essential (primary) hypertension
CPT/HCPCS: 78452; 93017; 93306; A9500; Q9957; A4216; C8929; J2785

== ENCOUNTER → 2022-10-14 | Outpatient (CLI) | payer BC, SELFPAY ==
--- NOTE | 2022-10-14 09:33 | BI_ITS ---
MAMMOGRAPHY - BILATERAL SCREENING REASON FOR EXAM: Female, 62 years old. Routine annual screening examination. PERTINENT HISTORY: Non-contributory. Prior left stereotactic breast biopsy. TECHNIQUE: Digital bilateral breast josh (3D mammographic acquisition) in the CC and MLO projections. 2-D mediolateral oblique (MLO) and craniocaudad (CC) views of both breasts were obtained. CAD: Full Field Digital Mammography with Computer Added Detection was performed. COMPARISON: Comparison is made with prior outside examination dated March 14, 2022. FINDINGS: Breast Composition: There are scattered areas of fibroglandular density. There are no dominant masses or suspicious calcifications. A tissue clip marker is seen in the anterior upper lateral aspect of the left breast. Postbiopsy scarring is seen. Correlation with ultrasound is recommended. No other significant abnormalities are identified. There has been no significant change since the prior study. BI/SCRN MAMM (CAD)W/JOSH BILAT IMPRESSION: Status post stereotactic biopsy in the anterior upper lateral aspect of the left breast as described. Correlation with ultrasound is recommended. ASSESSMENT CATEGORY: BIRADS Category 0: Incomplete. Need additional imaging evaluation. A letter regarding these results will be sent to the patient by the facility within 30 days. Approximately 10% of breast cancers are not detected by mammography. A normal mammogram should not delay biopsy of a clinically suspicious abnormality. [id number] Electronically Signed: Bryce Garcia MD at 8:56 EDT ,
== END | disposition home or self-care (01) ==
LOC: OPBI 09:31
PROVIDERS: PCP Nurse Practitioner Family; Referring Provider Surgery; Visit Provider Surgery
DX: Z12.31 Encounter for screening mammogram for malignant neoplasm of breast (principal)
CPT/HCPCS: 77063; 77067

== ENCOUNTER → 2022-10-17 | Outpatient (CLI) | payer BC, SELFPAY ==
--- NOTE | 2022-10-17 12:25 | US_ITS ---
STUDY: ULTRASOUND BREAST - LEFT REASON FOR EXAM: Female, 62 years old. Postbiopsy follow-up. TECHNIQUE: Axial and longitudinal images of the LEFT breast were performed with a high resolution ultrasound transducer. # OF IMAGES: 29 COMPARISON: Comparison is made with prior sonogram of the left breast done on March 28, 2022. FINDINGS: LEFT Breast: A tissue clip marker is seen in a 4 mm x 4 mm x 3 mm hypoechoic nodule at the 1:00 position of the breast at 7 sinus from nipple. Remainder of the examination is unchanged. US/Breast Limited Unilateral IMPRESSION: Status post biopsy of a nodule at the 1:00 position of the breast at 7 cm from the nipple. A tissue clip marker is seen within. ASSESSMENT CATEGORY: BIRADS Category 2: Benign. A letter regarding these results will be sent to the patient by the facility within 30 days. Electronically Signed: Bryce Garcia MD at 13:07 EDT ,
== END | disposition home or self-care (01) ==
LOC: OPUS 12:23
PROVIDERS: PCP Nurse Practitioner Family; Referring Provider Surgery; Visit Provider Surgery
DX: N63.21 Unspecified lump in the left breast, upper outer quadrant (principal)
CPT/HCPCS: 76642

== ENCOUNTER → 2023-02-08 | Outpatient (CLI) | payer BC, SELFPAY ==
--- NOTE | 2023-02-08 13:00 | CT_ITS ---
STUDY: CT CHEST WITH CONTRAST REASON FOR EXAM: Female, 62 years old. ABNORMAL ECHOCARDIOGRAM Limited chest OVER READ ONLY RADIATION DOSAGE (If Supplied By Facility): CTDIvol = ( 54.15 ) mGy, DLP = ( 4134.27 ) mGycm TECHNIQUE: Transaxial imaging was performed following intravenous administration of IV 75mL Isovue-370. Individualized dose optimization techniques were used for this CT. COMPARISON: No relevant priors. FINDINGS: CHEST Small benign-appearing bilateral axillary lymph nodes. Minimal increased markings at the lung bases suggest some mild linear atelectasis and/or scarring. There is no demonstrated pleural abnormality. Normal heart and pericardium. Normal mediastinum. Normal hilar regions. Normal unenhanced pulmonary arteries. There is mild atherosclerotic calcification of the aortic arch. Normal osseous structures. Moderate-sized hiatal hernia. Fatty infiltration of the liver. CT/Limited Chest CT Cardiac Only IMPRESSION: No coronary artery calcification is seen. Electronically Signed: Bryce Garcia MD at 11:31 EDT ,
[2023-02-08 13:44] VITALS: BP 155/90; PULSE 80
[2023-02-08] MEDS: Metoprolol Tartrate 5 MG/5 ML Vial IV ×2 (13:44→13:51)
[2023-02-08 13:46] VITALS: BP 155/90; PULSE 80; RESP 16; O2SAT 97; BMI 33.3
[2023-02-08 13:51] VITALS: PULSE 82
[2023-02-08 13:58] VITALS: PULSE 71
[2023-02-08] MEDS: Nitroglycerin SL (ED/IMG/CATH) 0.4 MG TABLET SL (13:58)
[2023-02-08 14:00] LABS: CREATININE FINGERSTICK 1.4 mg/dL (0.55-1.02)
[2023-02-08 14:09] VITALS: BP 151/84; PULSE 74; RESP 16; O2SAT 96
--- NOTE | 2023-02-09 07:48 | CCTA.WCONT ---
CCTA w/Cont Coronary Arteries Date of Study:: 02/08/23 Abnormal echocardiogram Coronary Calcium Scoring: High-resolution Computed Tomographic imaging of the chest was performed on [02/08/2023], with particular attention paid to the coronary arteries. Intravenous contrast agent was administered per protocol and images reconstructed and displayed. LEFT MAIN CORONARY ARTERY: This arose from the left coronary cusp and bifurcating into left anterior descending artery and left circumflex artery. No significant stenosis was noted in this vessel. [] LEFT ANTERIOR DESCENDING CORONARY ARTERY: This arose from the left main coronary artery. It was noted to be normal in size with minimal atherosclerotic plaquing noted. [] LEFT CIRCUMFLEX CORONARY ARTERY: No significant atherosclerotic plaquing noted [] RIGHT CORONARY ARTERY: This arose from the right coronary cusp with minimal atherosclerotic plaquing noted. [] THORACIC AORTA: Normal size [] PULMONARY ARTERY: [] LEFT ATRIUM/APPENDAGE: [] MITRAL VALVE: Normal [] AORTIC VALVE: Trileaflet [] LEFT VENTRICLE: Normal size with no pericardial effusion noted. [] CORONARY CALCIUM SCORE: Not done Conclusion: Coronary CTA with no significant atherosclerotic plaquing noted. []
== END | disposition home or self-care (01) ==
LOC: CT 12:50
PROVIDERS: PCP Nurse Practitioner Family; Referring Provider Nurse Practitioner Family; Visit Provider Nurse Practitioner Family
DX: I10 Essential (primary) hypertension (principal); R93.1 Abnormal findings on diagnostic imaging of heart and coronary circulation; R06.09 Other forms of dyspnea
CPT/HCPCS: 75572; 75574; 76380; 96374; Q9967

== ENCOUNTER → 2023-04-20 | Outpatient (CLI) | payer BC, SELFPAY ==
--- NOTE | 2023-04-20 09:17 | BI_ITS ---
MAMMOGRAPHY - UNILATERAL DIAGNOSTIC: LEFT BREAST REASON FOR EXAM: Female, 62 years old. Six-month follow-up recommended from prior mammogram and left breast ultrasound. PERTINENT HISTORY: History of stereotactic biopsy revealing ductal hyperplasia. TECHNIQUE: Digital examination. Mediolateral oblique (MLO) and craniocaudad (CC) views of the breast were obtained. CAD: CAD was performed on this study. COMPARISON: Screening mammogram dated March 14, 2022, left diagnostic mammogram dated March 28, 2022, screening mammogram dated October 14, 2022 and left breast ultrasound dated October 17, 2022 FINDINGS: Breast Composition: There are scattered areas of fibroglandular density. Normal left axillary lymph nodes, post biopsy changes in the upper outer quadrant of the left breast and tissue clip marker are stable. There are no dominant masses or suspicious calcifications. A 6 month follow-up bilateral mammogram to get the patient back on her annual schedule is recommended. BI/DIAG MAMM W/CAD, UNILAT IMPRESSION: Stable unilateral diagnostic mammogram. 6 month follow-up bilateral mammogram to get the patient back on her annual schedule is recommended. ASSESSMENT CATEGORY: BIRADS Category 3: Probably Benign - Short-Interval Follow-up Suggested. A letter regarding these results will be sent to the patient by the facility within 30 days. FOLLOW-UP RECOMMENDATION: Follow-up recommended within 6 months. (C) Approximately 10% of breast cancers are not detected by mammography. A normal mammogram should not delay biopsy of a clinically suspicious abnormality. Electronically Signed: Pino Hoyt MD at 10:15 EST ,
--- OUTSIDE RECORDS SUMMARY | 2023-04-20 09:23 | XMS RPT_ITS | CCD ---
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 Repository Problems Problem Classification Problem Date Documented Da te Episodic/Chronic Disorders of lipid metabolism (1 source) Hyperlipidemia, unspecified; Translations: [Hyperlipidemia, unspecified] Onset: 04-03-2023 Chronic Essential hypertension (2 sources) Essential (primary) hypertension; Translations: [Essential (primary) hypertension] Onset: 06-18-2022 Chronic Nutritional deficiencies (1 source) Vitamin D deficiency, unspecified; Translations: [Vitamin D deficiency, unspecified] Onset: 04-03-2023 Chronic Results Test Name Value Interpretation Reference Range Facil ity Encounters Encounter Date Encounter Type Care Provider Facility Start: 04-03-2023 End: 04-03-2023 ambulatory [facility] Start: 06-18-2022 End: 06-18-2022 ambulatory [facility] Start: 06-18-2022 Encounter for genera l adult medical examination without abnormal findings [facility] Payers Date Payer Category Payer Unknown [id number] 1960 Unknown [id number] Unknown [id number] Summary Purpose Family History No Family History Records FoundNo Family History Records Found Advance Directives No Advanced Directives Records FoundNo Advanced Directives Records Found Additional Source Comments INFORMATION SOURCE (unrecogn ized section and content) DATE CREATED AUTHOR AUTHOR'S MIGUELANGELАЛЕКСАНДР DAO 04/04/[address] [facility] FOR RECORDS PERTAINING TO PATIENTS WHO ARE OR HAVE BEEN ENROLLED IN A CHEMICAL DEPENDENCY/SUBSTANCEABUSE PROGRAM, SOME INFORMATION MAY BE OMITTED. This clinical summary was aggregated from multiple sources. Caution should be exercised in using it in the provision of clinical care. This summary normalizes information from multiple sources, and as a consequence, information in this document may materially change the coding, format and clinical context of patient data. In addition, data may be omitted in some cases. CLINICAL DECISIONS SHOULD BE BASED ON THE PRIMARY CLINICAL RECORDS. [facility] [facility]. provides no warranty or guarantee of the accuracy or completeness of information in this document.
== END | disposition home or self-care (01) ==
PROVIDERS: PCP Nurse Practitioner Family; Referring Provider Surgery; Visit Provider Surgery
DX: N60.92 Unspecified benign mammary dysplasia of left breast (principal)
CPT/HCPCS: 77061; 77065; G0279

== ENCOUNTER → 2023-06-06 | Outpatient (CLI) | payer BC, SELFPAY ==
--- NOTE | 2023-06-06 13:19 | MRI_ITS ---
STUDY: BILATERAL BREAST MR WITHOUT AND WITH CONTRAST REASON FOR EXAM: Female, 62 years old. 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 TECHNIQUE: Multi-sequence multi-echo imaging of both breasts was performed with a dedicated breast coil. T1-weighted and T2-weighted images were performed before the administration of contrast. T1-weighted images were also performed after the intravenous administration of 19 mL of Clariscan contrast. COMPARISON: Left breast ultrasound dated 10/19/2022, bilateral diagnostic mammogram dated 10/14/2022, left breast ultrasound dated 03/28/2022, left diagnostic mammogram dated 03/28/2022, bilateral screening mammograms dated 03/14/2022 and 07/01/2019. FINDINGS: RIGHT BREAST: Predominantly fatty replaced breast with moderate background enhancement. No abnormal enhancing masses or areas of non-mass enhancement in the right breast. LEFT BREAST: Scattered fibroglandular densities in the upper outer quadrant with moderate background enhancement in the upper outer quadrant extending into the inferior aspect of the left breast. This asymmetric enhancement corresponds to an area of increased glandularity within the left breast which has been mammographically stable since 2019. This finding is most compatible with asymmetric glandular tissue as there is no focal mass or non-mass enhancement. Because of the relatively focal asymmetric enhancement, however, it is recommended that the patient return in 6 months for a repeat diagnostic left mammogram and left breast ultrasound. Depending on the findings at that time, a repeat breast MRI with contrast may be considered given the focality of this enhancement, to establish stability. No enlarged or abnormal lymph nodes. No abnormality in the visualized regions of the chest or liver. MRI/Breast Bilateral W/O and W IMPRESSION: Stable background pattern by mammography dating back to 2019. Asymmetric enhancement of the breasts on the MRI study with contrast, left greater than right, as described, most likely representing asymmetric glandular tissue background enhancement. However, it is recommended the patient return in 6 months for a repeat left diagnostic mammogram and left breast ultrasound to assess the stability of this finding. Depending on the findings at that time, a repeat breast MRI with contrast could be considered to assess stability. CATEGORY: BIRADS Category 3: Probably Benign - Short-Interval Follow-up Suggested. A letter regarding these results will be sent to the patient by the facility within 30 days. Electronically Signed: Pino Hoyt MD at 13:51 EST ,
[2023-06-06 13:53] LABS: CREATININE FINGERSTICK 1.2 mg/dL (0.55-1.02)
--- OUTSIDE RECORDS SUMMARY | 2023-06-06 14:35 | XMS RPT_ITS | CCD ---
Author Name Unknown Address [facility] [address] [place] [address] Organization [facility] Care Team Providers Care Patrol Captain Name Role Phone ROXANA DUFFY Admitting Unavailable CLIVE, ROXANA Primary Care Unavailable CLIVE, ROXANA Consulting Unavailable CLIVE, ROXANA Attending Unavailable PROVIDER, UNKNOWN Consulting Unavailable CLIVE, ROXANA Primary Care Unavailable CLIVE, ROXANA Consulting Unavailable CLIVE, ROXANA Attending Unavailable CLIVE, ROXANA Admitting Unavailable PROVIDER, UNKNOWN Consulting Unavailable Allergies Allergy Classification Reported Allergen(s) Allergy Type Date of Onset Reaction(s) Facility (1 source) Sulfonamides (Antibiotic) Drug allergy (disorder) [facility] Repository Problems Problem Classification Problem Date [...] Provider Facility Start: 04-03-2023 End: 04-03-2023 ambulatory [facility] Start: 06-18-2022 End: 06-18-2022 ambulatory [facility] Start: 06-18-2022 Encounter for genera l adult medical examination without abnormal findings [facility] Payers Date Payer Category Payer Unknown [id number] 1960 Unknown [id number] Unknown [id number] Summary Purpose Family History No Family History Records FoundNo Family History Records Found Advance Directives No Advanced Directives Records FoundNo Advanced Directives Records Found Additional Source Comments INFORMATION SOURCE (unrecogn ized section and content) DATE CREATED AUTHOR AUTHOR'S MIGUELANGELАЛЕКСАНДР DAO 04/04/2023 [facility] FOR RECORDS PERTAINING TO PATIENTS WHO [...] BE BASED ON THE PRIMARY CLINICAL RECORDS. [employer] [facility]. provides no warranty or guarantee of the accuracy or completeness of information in this document.
== END | disposition home or self-care (01) ==
PROVIDERS: PCP Nurse Practitioner Family; Referring Provider Surgery; Visit Provider Surgery
DX: R92.8 Other abnormal and inconclusive findings on diagnostic imaging of breast (principal); N60.92 Unspecified benign mammary dysplasia of left breast
CPT/HCPCS: 77049; A9575; A4216; C8908

== ENCOUNTER → 2024-07-04 | Outpatient (CLI) | payer OTHER, SELFPAY ==
--- NOTE | 2024-07-04 16:42 | CT_ITS ---
PROCEDURE: SOFT TISSUE NECK WITHOUT CONTR REASON FOR EXAM: CLAVICLE ENLARGMENT Prominence of the left clavicle. TECHNIQUE: CT of the soft tissues of the neck from the orbits to the upper mediastinum without contrast. CONTRAST: None COMPARISON: None. FINDINGS: Airway: Midline and patent. Salivary glands: Unremarkable. Lymph nodes: No cervical lymphadenopathy. Thyroid: Heterogeneous enlargement of the right lobe of the thyroid with a 1.8 cm hypodensity along its inferior pole. Vasculature: Carotid arteries and internal jugular veins are unremarkable. Orbits: Unremarkable at visualized levels. Paranasal sinuses and mastoids: Grossly clear at visualized levels. Lung apices: Clear. Upper mediastinum: Visualized mediastinum is unremarkable. Bones: Mild degenerative changes of the spine. No abnormality of the left clavicle. CT/Soft Tissue Neck without Contr IMPRESSION: Mild heterogeneous enlargement of the right lobe of the thyroid as described. The left clavicle is unremarkable. No mass lesion is seen. One or more dose reduction techniques were used (e.g., Automated exposure contr ol, adjustment of the mA and/or kV according to patient size, use of iterative reconstruction technique). Reading Location: [place] [address]
== END | disposition home or self-care (01) ==
LOC: CT 16:40
PROVIDERS: PCP Nurse Practitioner Family; Referring Provider Surgery; Visit Provider Surgery
DX: M89.312 Hypertrophy of bone, left shoulder (principal)
CPT/HCPCS: 70490

== ENCOUNTER → 2024-08-05 | Outpatient (CLI) | payer OTHER, SELFPAY ==
--- NOTE | 2024-08-05 12:03 | US_ITS ---
PROCEDURE: THYROID (USTHY), 08/05/2024 REASON FOR EXAM: THYROID ULTRASOUND TECHNIQUE: Grayscale and color Doppler imaging of the thyroid was performed. COMPARISON: 07/04/2024 FINDINGS: Right lobe measures 5.8 x 2.9 x 2.3cm. Essentially homogeneous background echotexture. No abnormal vascularity. Nodules as below: *Lower pole, 2.5 x 2.4 x 2.1 cm, solid, mildly hypoechoic, TI-RADS 4. Left lobe measures 5.0 x 2.1 x 1.4 cm. Essentially homogeneous background echotexture. No abnormal vascularity. No solid or mostly solid nodules are identified. Isthmus measures 5 mm in thickness. US/Thyroid IMPRESSION: 1. Assessment is TI-RADS 4. This single 2.5 cm nodule identified on the RIGHT meets criteria for FNA which is recommended per the below. 2. Otherwise essentially homogeneous high normal-size gland without abnormal va scularity. Management recommendations for TI-RADS 4 findings: FNA if = 1.5 cm; Follow if = 1 cm at 1, 2, 3, and 5 years. Recommendations per ACR Thyroid Imaging, Reporting and Data System (TI-RADS): James quinn Paper of the ACR TI-RADS Committee, 2017 (https://[email or web address]/retrieve/[email or web address]) Reading Location: [id number]
== END | disposition home or self-care (01) ==
LOC: US 12:03
PROVIDERS: PCP Nurse Practitioner Family; Referring Provider Surgery; Visit Provider Surgery
DX: E04.9 Nontoxic goiter, unspecified (principal)
CPT/HCPCS: 76536

== ENCOUNTER 2024-08-16 08:51 | Day surgery (SDC) | payer OTHER, SELFPAY ==
--- NOTE | 2024-08-06 18:10 | PAT.ANE_ITS ---
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 When Was Last Pacemaker Check QUESTION #4 FULL TEXT: You/Your Family Experience fever (hyperthermia) with Anesthesia Last Oral Intake Last Oral intake: Last Oral Intake NPO since Meds taken in AM with sips of water? Meds patient instructed to take am of surgery PONV PONV - operations support manager: PONV - operations support manager Female Yes 08/06/24 08:36 HX of Motion Sickness Yes 08/06/24 08:36 HX of N/V After Surgery No 08/06/24 08:36 Non-Smoker Yes 08/06/24 08:36 Duration of Surgery greater Yes 08/06/24 08:36 than 60 minutes Number of Risk Factors 4 08/06/24 08:36 PONV Score Severe Risk 08/06/24 08:36 Height & Weight Height & Weight: Anesthesia: Height & Weight Height 5 ft 5 in 05/17/24 14:00 Respiratory Assessment Respiratory Assessment - operations support manager: Respiratory Tract Infection Hx - operations support manager Hx Respiratory Tract Infection No 08/06/24 08:36 STOP Sleep Apnea STOP Sleep Apnea - operations support manager: STOP Sleep Apnea - operations support manager Hx Hypertension Yes: CONTROLLED WITH MED 08/06/24 08:36 Hx Sleep Apnea No 08/06/24 08:36 CPAP BIPAP Do you snore loudly (louder No 08/06/24 08:36 than talking or can be heard Do you often feel tired/ No 08/06/24 08:36 fatigued/ sleepy during daytime? Has anyone observed you stop No 08/06/24 08:36 breathing during sleep? STOP Results Negative 08/06/24 08:36 QUESTION #5 FULL TEXT : Do you snore loudly (louder than talking or can be heard through closed doors)? 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 Specify any problems Hx of Preganancy in last 3 No 08/06/24 08:36 Months Nurse Filling Out Transfusion DSCHRIBER 08/06/24 08:36 & Questions: Date: 08/06/24 08/06/24 08:36 Time: 08:37 08/06/24 08:36 Patient unable to answer at this time (ie. confused, unrespo /Reproduction History /Reproductive History - operations support manager: /Reproductive Hx- operations support manager Hx Now No 08/06/24 08:36 Gestational Age (in weeks): EDC: Hx Hx Para Hx Section SAB No 08/06/24 08:36 [facility] Medical History (Updated 08/06/24 @ 08:40 by Rosalinda Sebastian) High cholesterol History of echocardiogram History of stress test Wears glasses Wears partial dentures Arthritis Fibromyalgia Low iron Migraine Hoarseness Leg cramps Anxiety HTN (hypertension) Home Medications ?Medication ?Instructions ?Recorded ?Last Taken ?Type amlodipine 5 mg tablet 5 mg PO QHS 08/14/19 0 21:00 History buspirone 10 mg tablet 10 mg PO TID PRN Anxiety Unknown History duloxetine 60 mg capsule,delayed 60 mg PO DAILY Unknown History release ergocalciferol (vitamin D2) 1,250 50,000 unit PO Q7D 0 08/14/19 Unknown History mcg (50,000 unit) capsule gemfibrozil 600 mg tablet 600 mg PO QHS 08/14/19 Unkno wn History iron, carbonyl 45 mg tablet 65 mg PO DAILY 08/14/19 Un known History metoprolol tartrate 50 mg tablet 50 mg PO QHS 08/14/19 08/15/19 21:00 History ibuprofen 600 mg tablet 600 mg PO TID PRN pain #30 t abs 08/16/19 Unknown Rx amitriptyline 25 mg tablet 50 mg PO QHS Sleep 04/01/22 Unknown History cyanocobalamin (vitamin B-12) 500 500 mcg PO DAILY 01/13 Unknown History mcg tablet (Vitamin B-12) gabapentin 300 mg capsule 300 mg PO TID 04/01/22 Unkno wn History meloxicam 7.5 mg tablet 7.5 mg PO DAILY 04/01/22 Unk nown History Allergy/AdvReac Type Severity Reaction Status Date / Time Sulfa (Sulfonamide Allergy Swelling Verified 08/06/24 08:33 Antibiotics) Family History Father Colon cancer Mother Hypertension Hyperlipidemia Surgical History (Updated 05/31/24 @ 08:43 by Rosalinda Sebastian) History of esophagogastroduodenoscopy (EGD) Hx of colonoscopy Hx of breast surgery H/O LEEP History of repair of hiatal hernia H/O cardiac radiofrequency ablation Social History Smoking Status: Never smoker alcohol intake: never substance use type: does not use Audit: Pertinent Findings Pertinent Findings Stress test pertinent findings: July 14, 2022. Ejection fraction 76%. No fixed or reversible perfusion defects noted. Echo (EF%) pertinent findings: July 14, 2022. Ejection fraction 60%. No aortic stenosis noted. Prominent fat pad versus small organized pericardial effusion noted a CTA chest is recommended for further evaluation. Recommendation Anesthesia Recommendation Anesthesia recommendation: OPTIMIZED for anesthesia
[2024-08-16] VITALS (10 sets, daily range): BP systolic 128–160; BP diastolic 80–89; PULSE 81–93; RESP 16–18; TEMP 35.9–36.9; O2SAT 92–96; BMI 35.6
[2024-08-16] MEDS: Lactated Ringers 1,000 ML 15 ML IV (09:17)
--- NOTE | 2024-08-16 09:18 | BI_ITS ---
PROCEDURE: NEEDLE LOC 1ST LESION 08/16/2024 REASON FOR EXAM: Abnormal mammogram. TECHNIQUE: Localization was performed by the surgeon. COMPARISON: None BI/Needle Loc 1st Lesion IMPRESSION: WIRE / NEEDLE LOCALIZATION OF THE left BREAST. Reading Location: [place] [address]
--- NOTE | 2024-08-16 09:18 | BI_ITS ---
PROCEDURE: BREAST BIOPSY SPECIMEN 08/16/2024 REASON FOR EXAM: History of intraductal hyperplasia. Area was localized for surgical removal. Document whether area of hyperplasia is present within the specimen. TECHNIQUE: A single specimen radiograph was obtained. COMPARISON: Mammogram studies dated 04/22/2023 and 10/14/2022 BI/Breast Biopsy Specimen IMPRESSION: There is a radiopaque clip, a radiopaque wire, calcifications and a masslike de nsity in the left breast specimen. There do appear to be clear margins however pathology is pending. Reading Location: [id number]
--- NOTE | 2024-08-16 09:38 | PCM.HP.STD ---
HPI - General General Date of Service: 08/16/24 HPI Narrative ADAM LOWRY, is a 63 F who presents for a left breast stereo wire localization of the clip and left excisional breast biopsy due to asymmetry still shown at site on MRI. Initially insurance was denying the procedure as it was listed as a lumpectomy not an excisional biopsy. Did get approval. 05/17/2024 HPI HPI: 63-year-old female presents due to abnormal left breast mammogram. Patient did have a biopsy this area that showed extensive intraductal hyperplasia with no atypia by Dr. Blankenship in March 2022 however mammography did show this area to be spiculated in appearance with asymmetry. Plan with Dr. Blankenship prior to fpc was getting an MRI to take a look at this area and then likely a lumpectomy. Patient is here to discuss lumpectomy. Patient's MRI still shows asymmetry at the area of the clip in the left breast. Recommended for 6-month repeat diagnostic mammogram and ultrasound. Patient also gets injections for her fibromyalgia about 2 months ago, she noticed the following week after the shop there was a bump near the left clavicular head. Patient states she has not noticed this previously. Nontender, no change in overlying skin [facility] Medical History (Updated 08/06/24 @ 08:40 by Rosalinda Sebastian) High cholesterol History of echocardiogram History of stress test Wears glasses Wears partial dentures Arthritis Fibromyalgia Low iron Migraine Hoarseness Leg cramps Anxiety HTN (hypertension) Home Medications ?Medication ?Instructions ?Recorded ?Last Taken ?Type amlodipine 5 mg tablet 5 mg PO QHS 08/14/19 08/15/24 History buspirone 10 mg tablet 10 mg PO TID PRN Anxiety 08/14/19 08/16/24 History duloxetine 60 mg capsule,delayed 60 mg PO DAILY 08/14/19 08/15/24 History release ergocalciferol (vitamin D2) 1,250 50,000 unit PO Q7D 08/14/19 Unknown History mcg (50,000 unit) capsule gemfibrozil 600 mg tablet 600 mg PO QHS 08/14/19 08/15/24 History iron, carbonyl 45 mg tablet 65 mg PO DAILY 08/14/19 08/15/24 History metoprolol tartrate 50 mg tablet 50 mg PO QHS 08/14/19 08/15/24 History ibuprofen 600 mg tablet 600 mg PO TID PRN pain #30 tabs 08/16/19 08/15/24 Rx amitriptyline 25 mg tablet 50 mg PO QHS Sleep 04/01/22 08/15/24 History cyanocobalamin (vitamin B-12) 500 500 mcg PO DAILY 04/01/22 08/15/24 History mcg tablet (Vitamin B-12) gabapentin 300 mg capsule 300 mg PO TID 04/01/22 08/15/24 History meloxicam 7.5 mg tablet 7.5 mg PO DAILY 04/01/22 08/15/24 History Allergy/AdvReac Type Severity Reaction Status Date / Time Sulfa (Sulfonamide Allergy Swelling Verified 08/16/24 08:56 Antibiotics) Family History Father Colon cancer Mother Hypertension Hyperlipidemia Surgical History (Updated 05/31/24 @ 08:43 by Rosalinda Sebastian) History of esophagogastroduodenoscopy (EGD) Hx of colonoscopy Hx of breast surgery H/O LEEP History of repair of hiatal hernia H/O cardiac radiofrequency ablation Social History Smoking Status: Former smoker alcohol intake: never substance use type: does not use Vital Signs Vital Signs Vital Signs: 08/16/24 09:17 08/16/24 09:17 Temperature 96.7 F L Temperature Source Temporal Pulse Rate 81 Respiratory Rate 17 Respiratory Pattern Normal Blood Pressure 160/80 H Blood Pressure Mean 106 Blood Pressure Source Monitor Blood Pressure Position Semi-Fowlers Blood Pressure Location Left Arm Pulse Ox 96 Oxygen Delivery Method Room Air Weight Weight: 214 lb 4.629 oz Body Mass Index (BMI) 35.6 Physical Exam Const alert, oriented x3 and no apparent distress HEENT normocephalic and head/scalp atraumatic Resp normal respiratory effort Cardio regular rate GI soft to palpation and non-tender; Negative for non-distended Palpation: Negative for guarding Extremity no clubbing, cyanosis or edema Skin no rashes or lesions noted Neuro CN's II-XII intact bilaterally Psych mental status grossly normal Assessment & Plan Assessment/Plan (1) Abnormal mammogram of left breast: (2) Intraductal hyperplasia without atypia of left breast: PLAN: Plan Due to the continued asymmetry of the left breast on MRI plan to do left breast stereo clip wire localization and left excisional breast biopsy of the area. Discussed with patient risk including but not limited to bleeding, infection, need for further surgery. Patient no further questions time. Sofia Barry M.D. Pager: [phone] [facility] [address] [place] [address], [address] [place] [id number] Office: [phone]
--- NOTE | 2024-08-16 10:15 | BRBX_PTH ---
PATIENT: ADAM LOWRY [place] [facility] [place] U[place][id number] AGE/SX: 63/F ROOM: RE08/16/[address]: Dr. Sofia Barry MD : 1960 BED: DIS: 08/16/2024 SPEC #: [id number] RECD: 08/16/24 11:51 STATUS: GIGI REQ #: [id number] LEAH: 08/16/24 10:[address]: Sofia Barry DEPT: SURGICAL PATHOLOGY RECD BY: Francesco Rojo ENTERED: 08/16/24 11:51 SP TYPE: BREAST BX OTHR DR: Indy Polanco, PROPOSITION PLAYER-C Tissues: A - Left breast, NOS Procedures: Immunohistochemical Stains Surgery Specimen Level V IHC Stain ADDITIONAL HEADER OPERATION: Breast, lumpectomy left stereo wire localization excisional breast biopsy PRE-OP DIAGNOSIS: Abnormal mammogram of left breast, intraductal hyperplasia without atypia pf left breast TISSUE SUBMITTED: A- Left breast excisional biopsy *long stitch- lateral, short stitch- superior* Ischemic Time: 1 minute Fixation Time: 7.5 hours MICROSCOPIC DIAGNOSIS A. Left breast, wire localization excision: * Intraductal papillomas, radial scar, surgical margins free of neoplasia. * Fibrocystic mastopathy with scattered microcalcifications - see note and Comment. * Biopsy site changes. Note: The histologic findings include fibrosis, dilated ducts, apocrine metaplasia, adenosis, sclerosing adenosis, intraductal papilloma/papillomatosis, focal radial scar, and UDH (usual ductal hyperplasia). IHC for CK5/6 and ER support the diagnosis (A3, A8). No cytologic atypia or malignant change is seen in these sections. COMMENT Selected slides were reviewed in intradepartmental consultation by Dr Andres Traore ([facility] pathology division, [facility]). MICROSCOPIC DESCRIPTION Slides are reviewed. All matched controls reacted appropriately. These tests were developed and their performance characteristics determined by [facility]. They may not have been cleared or approved by the U.S. Food and Drug Administration. The FDA has determined that such clearance or approval is not necessary.? The above immunohistochemical/dualISH?markers are ordered and reviewed by the Pathologist. GROSS DESCRIPTION A. Received fresh in a container labeled with the patient's name, date of , and left breast: Excisional biopsy, long stitch lateral, short stitch superior is an oriented, 34.8 g left lumpectomy specimen with a long stitch indicating lateral margin and short stitch indicating superior margin. Protruding from the anterior/lateral margin is a metal localization wire.The specimen is 6.6 cm from superior to inferior, 3.7 cm from medial to lateral, and 3.6 cm from anterior to posterior. Ink garcia:[id number]-mevgHspzhmsq-rfwtwRvjsai-bpqRcwmhag-ymbexuXjwgwuve-[id number]-black The specimen is serially sectioned from superior to inferior into 9 slices. A cylindrical metal biopsy clip is identified within slice 5 with a surrounding previous biopsy site. No mass lesion is identified.Previous biopsy site measurement: 0.6 x 0.3 x 0.3 cm. It is situated to the margins as follows:Lateral: 0.3 cmAnterior: 0.5 cmMedial: 1.4 cmPosterior: 1.5 cmSuperior: 1.0 cmInferior: Greater than 2 cm Throughout the entirety of the specimen, from slices 1-9, and surrounding the previous biopsy site is white-pink, cystic, and dense fibrous tissue.Cystic and dense fibrous area measurement: Approximately 6.6 x 2.0 x 2.0 cm. The dense and cystic area focally appears to abut each margin throughout the specimen. The cut surfaces are comprised of approximately 50% adipose tissue and 50% dense and cystic fibrous tissue. Premium Service Representative sections:A1. Slice 1, perpendicular sections of superior margin with dense fibrous areaA2. Slice 2, fibrous area to lateral, posterior, and superior marginsA3. Slice 3, anterior/lateral margin adjacent to previous biopsy siteA4. Slice 3, posterior/lateral and medial margins with fibrous areaA5. Slice 4, anterior/lateral and posterior margins to previous biopsy siteA6-7. Slice 5 with biopsy site, bisected and entirely submittedA 8. Slice 6, lateral and deep margins with fibrous areaA9. Slice 7, anterior, inferior, and small aspect of medial margin to fibrous areaA10. Slice 8, anterior/inferior margins with lateral/deep margins to fibrous areaA 11. Slice 9, perpendicular sections of inferior margin to fibrous area Total formalin fixation time: Between 6 and 72 hours. [facility] 08-16-2024 CPT:[id number],[id number]
--- NOTE | 2024-08-16 10:15 | PCM.PRE.AN2 ---
ASA Classification* ASA Classification ASA Classification: 2 Assessment & Plan Anesthesia* Anesthesia Assessment Anesthesia Assessment: Discussed sedation and/or anesthesia options, risks, benefits, and alternatives with patient/parents/legal guardian/POA. Questions invited. The patient/parents/legal guardian/POA seems to understand and agrees to proceed with anesthesia plan. Reviewed the physical assessment, medical history, allergy history and patient home medications list prior to surgery/procedure/anesthetic and documented any changes. Performed airway and anesthesia risk assessments. Anesthesia Type Anesthesia Type: General History Source History Obtained from:: Patient and Chart Anesthesia Focused Assessment* Temperature: 96.7 F Pulse Rate: 81 Blood Pressure: 160/80 Respiratory Rate: 17 Pulse Ox: 96 Oxygen Delivery Method: Room Air Airway Assessment Mouth opens: >3 cm Mallampati Score: III Teeth Condition: Missing (Patient is missing lower molars. Rest of the teeth are tight.) and Partial (Top partial is out.) Neck Range of motion (ROM): Full ROM Focused Labs Anesthesia Preop lab: CBC WBC 7.8 K/mm3 (4.4-11.0) 08/16/19 10:10 08/16/19 RBC 5.15 M/mm3 (4.2-5.4) 08/16/19 10:10 08/16/19 Hgb 13.3 g/dL (12.0-15.0) 08/16/19 10:10 08/16/19 Hct 42.7 % (37-47) 08/16/19 10:10 08/16/19 Plt Count 375 K/mm3 (150-450) 08/16/19 10:10 08/16/19 CHEMISTRY COAG PT 12.9 SECONDS (11.7-14.9) 08/16/19 10:10 08/16/19 Pre-Assessment Diagnosis/Proposed Procedure Planned Operative Procedure(s): LEFT BREAST STEREO WIRE LOCALIZATION EXCISIONAL BREAST BIOPSY Anesthesia History 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 When Was Last Pacemaker Check QUESTION #4 FULL TEXT: You/Your Family Experience fever (hyperthermia) with Anesthesia Last Oral Intake Last Oral intake: Last Oral Intake NPO since 00:00 08/16/24 09:17 Meds taken in AM with sips of water? Meds patient instructed to take am of surgery Any additional information?: Yes Meds taken in AM with sips of water?: Yes PONV PONV - meat market manager: PONV - meat market manager Female Yes 08/06/24 08:36 HX of Motion Sickness Yes 08/06/24 08:36 HX of N/V After Surgery No 08/06/24 08:36 Non-Smoker Yes 08/06/24 08:36 Duration of Surgery greater Yes 08/06/24 08:36 than 60 minutes Number of Risk Factors 4 08/06/24 08:36 PONV Score Severe Risk 08/06/24 08:36 Height & Weight Height & Weight: Anesthesia: Height & Weight Height 5 ft 5 in 08/16/24 09:17 Weight: 97.2 kg 08/16/24 09:17 Body Mass Index (BMI) 35.6 08/16/24 09:17 Respiratory Assessment Respiratory Assessment - meat market manager: Respiratory Tract Infection Hx - meat market manager Hx Respiratory Tract Infection No 08/06/24 08:36 STOP Sleep Apnea STOP Sleep Apnea - meat market manager: STOP Sleep Apnea - meat market manager Hx Hypertension Yes: CONTROLLED WITH MED 08/06/24 08:36 Hx Sleep Apnea No 08/06/24 08:36 CPAP BIPAP Do you snore loudly (louder No 08/06/24 08:36 than talking or can be heard Do you often feel tired/ No 08/06/24 08:36 fatigued/ sleepy during daytime? Has anyone observed you stop No 08/06/24 08:36 breathing during sleep? STOP Results Negative 08/06/24 08:36 QUESTION #5 FULL TEXT : Do you snore loudly (louder than talking or can be heard through closed doors)? 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 Specify any problems Hx of Preganancy in last 3 No 08/06/24 08:36 Months Nurse Filling Out Transfusion DSCHRIBER 08/06/24 08:36 & Questions: Date: 08/06/24 08/06/24 08:36 Time: 08:37 08/06/24 08:36 Patient unable to answer at this time (ie. confused, unrespo /Reproduction History /Reproductive History - meat market manager: /Reproductive Hx- meat market manager Hx Now No 08/06/24 08:36 Gestational Age (in weeks): EDC: Hx Hx Para Hx Section SAB No 08/06/24 08:36 Active Medications Active Medications: Current Medications Generic Name Dose Route Start Last Admin Trade Name Freq PRN Reason Stop Dose Admin Cefazolin Sodium 2 gm/ N/A 20 mls @ 400 mls/hr 08/16/24 11:00 IV 08/16/24 11:02 INTRAOP ONE Lactated Ringer's 1,000 mls @ 15 mls/hr 08/16/24 09:00 08/16/24 09:17 IV 15 mls/hr .Q48H RAGHU Administration PFSH Medical History High cholesterol History of echocardiogram History of stress test Wears glasses Wears partial dentures Arthritis Fibromyalgia Low iron Migraine Hoarseness Leg cramps Anxiety HTN (hypertension) Home Medications ?Medication ?Instructions ?Recorded ?Last Taken ?Type amlodipine 5 mg tablet 5 mg PO QHS 08/14/19 08/15/24 History buspirone 10 mg tablet 10 mg PO TID PRN Anxiety 08/14/19 08/16/24 History duloxetine 60 mg capsule,delayed 60 mg PO DAILY 08/14/19 08/15/24 History release ergocalciferol (vitamin D2) 1,250 50,000 unit PO Q7D 08/14/19 Unknown History mcg (50,000 unit) capsule gemfibrozil 600 mg tablet 600 mg PO QHS 08/14/19 08/15/24 History iron, carbonyl 45 mg tablet 65 mg PO DAILY 08/14/19 08/15/24 History metoprolol tartrate 50 mg tablet 50 mg PO QHS 08/14/19 08/15/24 History ibuprofen 600 mg tablet 600 mg PO TID PRN pain #30 tabs 08/16/19 08/15/24 Rx amitriptyline 25 mg tablet 50 mg PO QHS Sleep 04/01/22 08/15/24 History cyanocobalamin (vitamin B-12) 500 500 mcg PO DAILY 04/01/22 08/15/24 History mcg tablet (Vitamin B-12) gabapentin 300 mg capsule 300 mg PO TID 04/01/22 08/15/24 History meloxicam 7.5 mg tablet 7.5 mg PO DAILY 04/01/22 08/15/24 History Allergy/AdvReac Type Severity Reaction Status Date / Time Sulfa (Sulfonamide Allergy Swelling Verified 08/16/24 08:56 Antibiotics) Family History Father Colon cancer Mother Hypertension Hyperlipidemia Surgical History History of esophagogastroduodenoscopy (EGD) Hx of colonoscopy Hx of breast surgery H/O LEEP History of repair of hiatal hernia H/O cardiac radiofrequency ablation Social History Smoking Status: Former smoker alcohol intake: never substance use type: does not use Review of Systems (Anesthesia) ROS Narrative System reviewed and no additional complaints, except as documented.
[2024-08-16] MEDS: Cefazolin 2 GM in Syringe IV (10:43)
--- NOTE | 2024-08-16 11:23 | OP.PCM_ITS ---
Operative Report (Standard) Operative Information Date of Procedure: 08/16/24 Pre-Operative Diagnosis: Abnormal left mammography Post-Operative Diagnosis: Same Surgery/Procedure Performed: Stereotactic wire localization left breast excisional biopsy technical administrator: Yes Oil Tester: Harish Whitlock Tasks completed by international first officer: Opening & closing and Retracting Type of Anesthesia: General/Supplemental RN Documented Start/Stop Times: Operation Date: 08/16/24 10:15 Case Time Into Pre-Op 08/16/24 08:57 Anesthesia Start 08/16/24 10:31 Into Room 08/16/24 10:31 Procedure Start 08/16/24 10:47 Procedure End 08/16/24 11:35 Anesthesia End 08/16/24 11:45 Out of Room 08/16/24 11:45 Into Recovery 08/16/24 11:46 Into Phase II Recovery 08/16/24 12:32 Out of Recovery 08/16/24 12:32 Out of Phase II 08/16/24 13:36 Procedure Start Time: 10:47 Procedure Stop Time: 11:35 Select all DRAINS/GRAFTS/IMPLANTS that apply: None Special Medications: Ancef 2 g IV x 1 Estimated Blood Loss: < 10 cc Specimen collected: Yes Description of specimen(s) removed: Left breast excisional biopsy Description of surgery: Patient underwent stereotactic wire localization and mammography. Clip was localized. Bard wire was placed inferior after Betadine and infiltrating local anesthesia. 15 and -15 degree view showed the needle/wire to be located just inferior to the clip. Localization studies with 2 view mammography were completed. Patient was brought to operating placed spine operating table. Timeout was c ompleted verifying correct patient, procedure, site, positioning, special equipment prior began procedure. General anesthesia was induced. Patient's left breast was prepped draped in a sterile fashion. A curvilinear incision was planned in such a way as to minimize the amount of dissection to reach the mass. Flaps were raised in the location of the wire confirmed. The wire was delivered into the wound. 2 silk [id number] stay suture was placed around the wire and used for traction. Dissection was then taken down circumferentially with electrocautery, taking care to include the entire localization needle and wide margin of grossly normal tissue. The specimen and entire localizing wire were removed. The specimen was oriented and sent to radiology. Confirmation was received that the entire target lesion and clip had been resected. The cavity was irrigated. Hemostasis was obtained with electrocautery. The breast incision was closed with interrupted sutures of 3-0 Vicryl and subcuticular sutures of 4-0 Monocryl. No attempt was made to close the space. A dressing of fluff gauze and supportive bra placed. The patient tolerated procedure well was taken to the postanesthesia care in stable condition. Surgical Findings: See operative report Complications Complications: No
--- NOTE | 2024-08-16 11:28 | EX.PCM.DISCH ---
Discharge Instructions Diet Discharge Diet: No restrictions Activity Discharge Activity: May Not Drive (for 2-3 days or while taking narcotic pain meds.) May shower in (days): 1 Lifting Restrictions: 15 pounds for 1 week with the left arm. Dressing / Incision Call your doctor if your incision/area has: Continuous Slow Oozing, Sudden Increased Bleeding, Increased Pain/ Swelling and Increased Redness Call your doctor if you observe: Fever of 101 or Higher Suture Line Care: Avoid Pulling/Pushing and Avoid Pinching/Bending Remove Dressing in: 1 day Additional Dressing/Incision Instructions:: Remove bulky dressing tomorrow. May leave op-site dressing for 3-4 days. Okay to remove Steri-Strips from the breast incision in 7 to 10 days. Follow Up Care Please Follow Up With: Sofia Barry MD When: Please call [phone] for an appointment to be seen in 2 week. Test Results: Test results from this visit will be discussed in further detail at your follow-up appointment, if applicable. Discharge Plan Admission Attending Provider: Sofia Barry Primary Care Provider: Indy Polanco NP Instructions Print Language: Angolan Discharge Orders/Prescriptions Prescriptions: New oxycodone 5 mg capsule 5 mg PO Q6H PRN (Reason: pain) 3 Days Qty: 7 0RF Continued meloxicam 7.5 mg tablet 7.5 mg PO DAILY gabapentin 300 mg capsule 300 mg PO TID cyanocobalamin (vitamin B-12) [Vitamin B-12] 500 mcg tablet 500 mcg PO DAILY amlodipine 5 MG tablet 5 mg PO QHS gemfibrozil 600 MG tablet 600 mg PO QHS buspirone 10 MG tablet 10 mg PO TID PRN (Reason: Anxiety) metoprolol tartrate 50 MG tablet 50 mg PO QHS ergocalciferol (vitamin D2) 50,000 UNIT capsule 50,000 unit PO Q7D iron, carbonyl 45 MG tablet 65 mg PO DAILY duloxetine 60 MG capsule 60 mg PO DAILY ibuprofen 600 MG tablet 600 mg PO TID PRN (Reason: pain) Qty: 30 0RF amitriptyline 25 mg tablet 50 mg PO QHS Referrals / Follow Up: Indy Polanco NP, ENROLLMENT MANAGEMENT DIRECTOR-C [Primary Care Provider] - Disposition Disposition (needs filled in before D/C Order can be placed): Home, Self Care
[2024-08-16] MEDS: Bupivacaine 0.25% 30 ML Vial (11:33)
--- NOTE | 2024-08-16 11:50 | PCM.POST.ANE ---
Anesthesia: Postop Eval I Current Vital Signs Temperature: 98.4 F Pulse Rate: 93 Blood Pressure: 146/89 Respiratory Rate: 16 Pulse Ox: 94 Assessment Airway patent: Yes Spontaneous unlabored respirations: Yes nausea: No Vomiting: No Anesthesia Complication: No Fluid Hydration Crystalloid volume administer (ml): 1,000 Total IV fluid infused: 1,000 Progress Note Anesthesia document: Postop Eval 1 completed: Yes
--- NOTE | 2024-08-16 12:25 | POSTOPAN2_ITS ---
Anesthesia Postop Eval I Sum Postop Eval Completion status Anesthesia document: Postop Eval 1 completed: Yes Anesthesia Postop Eval I Summary Anesthesia Postop Eval I Summary: Anesthesia Postop Eval I: Assessment Summary Airway patent Yes 08/16/24 11:50 GINNER [email or web address] Spontaneous unlabored Yes 08/16/24 11:50 GINNER [email or web address] respirations Mental status nausea No 08/16/24 11:50 GINNER [email or web address] Vomiting No 08/16/24 11:50 [email or web address] Anesthesia Postop Eval I: Fluid Summary Crystalloid volume administer 1,000 08/16/24 11:50 [email or web address] (ml) Colloids volume administered ( ml) Blood Product volume administered (ml) Total IV fluid infused 1,000 08/16/24 11:50 [email or web address] Anesthesia Postop Eval I: Summary Notes Anesthesia Complication No 08/16/24 11:50 [email or web address] Anesthesia Complication Comment: Post-operative progress note Anesthesia: Postop Eval II Evaluation Mental status: Asleep Pain Level: 0 nausea: No Vomiting: No Complications Anesthesia Complication: No
--- NOTE | 2024-08-16 12:25 | PCM.POSTANE2 ---
Anesthesia Postop Eval I Sum Postop Eval Completion status Anesthesia document: Postop Eval 1 completed: Yes Anesthesia Postop Eval I Summary Anesthesia Postop Eval I Summary: Anesthesia Postop Eval I: Assessment Summary Airway patent Yes 08/16/24 11:50 [email or web address] Spontaneous unlabored Yes 08/16/24 11:50 [email or web address] respirations Mental status nausea No 08/16/24 11:50 [email or web address] Vomiting No 08/16/24 11:50 [email or web address] Anesthesia Postop Eval I: Fluid Summary Crystalloid volume administer 1,000 08/16/24 11:50 [email or web address] (ml) Colloids volume administered ( ml) Blood Product volume administered (ml) Total IV fluid infused 1,000 08/16/24 11:50 [email or web address] Anesthesia Postop Eval I: Summary Notes Anesthesia Complication No 08/16/24 11:50 [email or web address] Anesthesia Complication Comment: Post-operative progress note Anesthesia: Postop Eval II Evaluation Mental status: Asleep Pain Level: 0 nausea: No Vomiting: No Complications Anesthesia Complication: No
== END 2024-08-16 13:36 | disposition home or self-care (01) ==
LOC: SDC 08:52 → AC 08:54
PROVIDERS: PCP Nurse Practitioner Family; Referring Provider Surgery; Visit Provider Surgery
PROC: (CPT 19301; principal; 2024-08-16 10:00)
DX: D24.2 Benign neoplasm of left breast (principal); N60.32 Fibrosclerosis of left breast; I10 Essential (primary) hypertension; E78.00 Pure hypercholesterolemia, unspecified; Z79.899 Other long term (current) drug therapy; Z87.891 Personal history of nicotine dependence
CPT/HCPCS: 19125; 00400; 19281; 76098; 88305; 88307; 88341; 88342; A4648; J2405; Q9968

== ENCOUNTER 2024-08-29 14:02 | Outpatient (CLI) | payer OTHER, SELFPAY ==
--- NOTE | 2024-08-29 | ASPIG_PTH ---
PATIENT: ADAM LOWRY LOC: [facility] U#:[id number] AGE/SX: 63/F ROOM: RE08/29/[address]: Dr. Dylon Ray MD : 1960 BED: DIS: 08/29/2024 SPEC #: [id number] RECD: 08/29/24 14:10 STATUS: GIGI RERoman #: [id number] LEAH: 08/29/24 00:[address]: Dylon Ray DEPT: CYTOLOGY RECD BY: Amador Olivas ENTERED: 08/29/24 14:39 SP TYPE: ASP OUT OTHR DR: Indy Polanco, WIRE TRANSFER CLERK-C Tissues: A - Thyroid gland, NOS Procedures: FNA Specimen Adequacy Special Stain Group II Surgery Specimen Level IV Cytology Other HEADER OPERATION: Fine needle aspiration of right thyroid nodule PRE-OP DIAGNOSIS: Right thyroid nodule TISSUE SUBMITTED: A- Right thyroid nodule fluid DIAGNOSIS CYTOLOGY A. Thyroid, fna - right: * No malignant cells are identified * Benign follicular nodular disease COMMENT The specimen is evaluated at the time of biopsy by Dr. Traore. Immediate Evaluation = Mostly blood with rare follicular cells. CYTOLOGY STUDY Slides are reviewed. CYTOLOGY GROSS A. Received is 30 ml of red-cloudy fluid cytolyt with particles labeled with the patient's name and and designated per the requisition as Right thyroid nodule. Submitted for cytology. Mr 08/29/2024 CPT: 78862
== END 2024-08-29 23:59 | disposition home or self-care (01) ==
PROVIDERS: PCP Nurse Practitioner Family; Referring Provider Surgery; Visit Provider Surgery
DX: E04.1 Nontoxic single thyroid nodule (principal)
CPT/HCPCS: 88161; 88172; 88305; 88313

== ENCOUNTER → 2024-08-30 | Outpatient (CLI) | payer OTHER, SELFPAY ==
[2024-08-30 13:09] LABS: Free T3 3.2 pg/mL (2.18-3.98)
== END | disposition home or self-care (01) ==
LOC: LAB 11:21
PROVIDERS: PCP Nurse Practitioner Family; Referring Provider Surgery; Visit Provider Surgery
DX: E04.1 Nontoxic single thyroid nodule (principal)
CPT/HCPCS: 36415; 84439; 84443; 84481